=== PATIENT | female | born 1985 | race Caucasian/White ===

== ENCOUNTER 2016-05-21 17:00 | Emergency (ER) | payer MEDICAID ==
--- NOTE | 2016-05-21 17:19 | Emergency Department Record ---
History of Present Illness - General Chief complaint: Abscess Stated complaint: painful spot on face Time Seen by Provider: 05/21/16 17:18 Source: Patient Mode of Arrival: Ambulatory Limitations: No limitations - History of Present Illness Initial comments: The patient has had a painful pimple to her R mandible area for 3 days. It was worse yesterday and today the swelling and redness have gone down but she now has a tender lymph node under her jaw on the L. She denies any ULISES, cough, fever , ST or any trouble swallowing. MD complaint: Abscess/boil, Rash Onset/Timin -: Days(s) Location: Face Severity: Moderate Severity scale (1-10): 3 Quality: Aching Consistency: Constant Improves with: None Worsens with: Palpation - Related Data Previous Rx's Medication Instructions Recorded Clindamycin HCl [Cleocin HCl] 300 mg PO QID #28 capsule 05/21/16 Allergies Allergy/AdvReac Type Severity Reaction Status Date / Time No Known Drug Allergies Allergy Verified 05/21/16 17:08 Travel Screening - Travel/Exposure Within Last 30 Days Have you traveled within the last 30 days?: No - Travel/Exposure Within Last Year Have you traveled outside the [place] in the last year?: No - Additonal Travel Details Have you been exposed to anyone with a communicable illness?: No - Travel Symptoms Symptom Screening: None Review of Systems Constitutional: Denies: Chills, Fever Past Medical History - SOCIAL HISTORY Smoking Status: Current every day smoker Alcohol Use: None Drug Use: None - RESPIRATORY Hx Respiratory Disorders: No - CARDIOVASCULAR Hx Cardio Disorders: Yes Comment:: murmur - NEURO Hx Neuro Disorders: No - GI Hx GI Disorders: No - Hx Genitourinary Disorders: No - ENDOCRINE Hx Endocrine Disorders: No - MUSCULOSKELETAL Hx Musculoskeletal Disorders: No - PSYCH Hx Psych Problems: No - HEMATOLOGY/ONCOLOGY Hx Hematology/Oncology Disorders: No Family Medical History Any Significant Family History?: Yes Physical Exam - General General Appearance: Alert, Oriented x3, Cooperative, No acute distress - Head Head exam: Atraumatic, Normocephalic, Normal inspection - Eye Eye exam: Normal appearance, PERRL - ENT ENT exam: Other (There is a 7x7 mm tender nodule to the R anterior mandible area. It is NOT fluctuant but very tender. There is no surrounding erythema.). negative: Normal exam Throat exam: Normal inspection. negative: Tonsillar erythema, Tonsillar exudate - Neck Neck exam: Normal inspection, Full ROM, Lymphadenopathy (there is a tender L anterior submandibular node.). negative: Tenderness - Respiratory Respiratory exam: Normal lung sounds bilaterally. negative: Respiratory distress Course Vital Signs 05/21/16 17:03 Temperature 98.3 F Pulse Rate 85 Respiratory 12 Rate Blood Pressure 121/69 Pulse Ox 98 - Reevaluation(s) Reevaluation #1: I did discuss the plan to treat the patient with clindamycin and warm compresses. She is to see her PCP in 2 days if not better and return to the ER if worse. 05/21/16 17:26 Disposition Disposition: Discharge Clinical Impression: Cutaneous abscess Qualifiers: Site of cutaneous abscess: face Qualified Code(s): L02.01 - Cutaneous abscess of face Disposition: Home, Self-Care Condition: (1) Good Instructions: Abscess (ED) Additional Instructions: Please use warm compresses on the area when possible. Please take the Clindamycin and F/U with your PCP in 2-3 days if not better. Return to the ER for any increased pain, swelling, or redness. Prescriptions: Clindamycin HCl [Cleocin HCl] 300 mg PO QID #28 capsule Forms: Patient Portal Access Time of Disposition: 17:28
[2016-05-21] MEDS ORDERED: CLINDAMYCIN 150 MG CAP PO ONE (17:23)
== END 2016-05-21 17:33 | disposition home or self-care (01) ==
LOC: ER 17:00
DX: L02.01 Cutaneous abscess of face (principal)
CPT/HCPCS: 99282

== ENCOUNTER 2016-09-12 08:48 | Emergency (ER) | payer MEDICAID ==
[2016-09-12] MEDS ORDERED: KETOROLAC 30 MG/ML VIAL IVP ONE (09:01)
[2016-09-12] MEDS ORDERED: 0.9 % SODIUM CHLORIDE 1,000 ML BAG IV ONE (09:01)
[2016-09-12] MEDS ORDERED: ONDANSETRON HCL IV 4 MG/2 ML VIAL IV ONE (09:01)
--- NOTE | 2016-09-12 09:07 | Emergency Department Record ---
History of Present Illness - General Chief complaint: Flank Pain Stated complaint: BACK & GROIN PAIN Time Seen by Provider: 09/12/16 09:00 Source: Patient Mode of Arrival: Ambulatory Limitations: No limitations - History of Present Illness Initial comments: 30 yo female presents with a sharp pain that started around 6am. The pain initially was in the RLQ then noted in the right flank. She reports she has had similar pain in the pain with a renal stones that she past during a . She states her urine looks tinged with blood. No abnormal cycles. No history or abdominal surgeries. No fevers, chills, vomiting or diarrhea. MD Complaint: Pelvic pain, Other (Right flank pain) Onset/Timin -: Hour(s) Radiation: R flank Severity: Moderate Severity scale (1-10): 7 Quality: Cramping, Sharp Consistency: Constant Improves with: None Worsens with: None Associated Symptoms: Hematuria - Related Data Previous Rx's Medication Instructions Recorded Clindamycin HCl [Cleocin HCl] 300 mg PO QID #28 capsule 05/21/16 Hydrocodone/Acetaminophen [[place] 1 each PO Q6H PRN #12 tablet 09/12/16 5-325 Tablet] Ondansetron [Zofran Odt] 4 mg PO Q8H #12 tab.rapdis 09/12/16 Allergies Allergy/AdvReac Type Severity Reaction Status Date / Time No Known Drug Allergies Allergy Verified 05/21/16 17:08 Travel Screening - Travel/Exposure Within Last 30 Days Have you traveled within the last 30 days?: No - Travel/Exposure Within Last Year Have you traveled outside the [place] in the last year?: No - Additonal Travel Details Have you been exposed to anyone with a communicable illness?: No Review of Systems Constitutional: Denies: Chills, Fever, Malaise, Weakness Eyes: Denies: Eye discharge ENT: Denies: Congestion, Throat pain Respiratory: Denies: Cough, Dyspnea, Wheezes Cardiovascular: Denies: Chest pain, Palpitations, Syncope Endocrine: Denies: Fatigue, Polydipsia, Polyuria Gastrointestinal: Reports: Abdominal pain, Nausea. Denies: Constipation, Diarrhea, Hematemesis, Vomiting Genitourinary: Reports: Hematuria. Denies: Dysuria, Frequency, Urgency Musculoskeletal: Reports: As per HPI, Back pain. Denies: Arthralgia Skin: Denies: Bruising, Change in color, Rash Neurological: Denies: Numbness, Weakness Psychiatric: Denies: Anxiety Hematological/Lymphatic: Denies: Blood Clots, Easy bleeding, Easy bruising, Swollen glands Past Medical History - SOCIAL HISTORY Smoking Status: Current every day smoker Alcohol Use: None Drug Use: None - RESPIRATORY Hx Respiratory Disorders: No - CARDIOVASCULAR Hx Cardio Disorders: Yes Comment:: murmur - NEURO Hx Neuro Disorders: No - GI Hx GI Disorders: No - Hx Genitourinary Disorders: Yes Hx Kidney Stones: Yes - ENDOCRINE Hx Endocrine Disorders: No - MUSCULOSKELETAL Hx Musculoskeletal Disorders: No - PSYCH Hx Psych Problems: No - HEMATOLOGY/ONCOLOGY Hx Hematology/Oncology Disorders: No Family Medical History Any Significant Family History?: No Physical Exam - General General Appearance: Alert, Oriented x3, Cooperative, No acute distress Limitations: No limitations - Head Head exam: Normal inspection - Eye Eye exam: Normal appearance. negative: Conjunctival injection, Periorbital swelling - ENT ENT exam: Normal exam Ear exam: Normal external inspection Nasal Exam: Normal inspection Mouth exam: Normal external inspection - Neck Neck exam: Normal inspection, Full ROM. negative: Tenderness - Respiratory Respiratory exam: Normal lung sounds bilaterally. negative: Respiratory distress - Cardiovascular Cardiovascular Exam: Regular rate, Normal rhythm, Normal heart sounds - GI/Abdominal GI/Abdominal exam: Soft. negative: Distended, Tenderness - Rectal Rectal exam: Deferred - exam: Deferred - Extremities Extremities exam: Normal inspection, Full ROM, Normal capillary refill. negative: Tenderness - Back Back exam: Reports: Normal inspection, CVA tenderness (R), Full ROM, Tenderness. Denies: CVA tenderness (L), Muscle spasm, Paraspinal tenderness, Rash noted, Vertebral tenderness - Neurological Neurological exam: Alert, Normal gait, Oriented X3 - Psychiatric Psychiatric exam: Normal affect, Normal mood - Skin Skin exam: Dry, Intact, Normal color, Warm Course Vital Signs 09/12/16 09:01 Temperature 97.7 F Pulse Rate [ 74 Pulse Ox Probe] Respiratory 20 Rate Blood Pressure 127/72 [Left Arm] Pulse Ox 97 - Reevaluation(s) Reevaluation #1: EMR reviewed. No prior abdominal imaging. Vitals reviewed. No fever. 09/12/16 09:07 Reevaluation #2: The labs were reviewed No acute changes of the CBC, CMP The UA is positive for blood The HCG is negative for 09/12/16 09:36 Reevaluation #3: CT reviewed. Distall 2.5mm stone. Questionable small adrenal nodule. The patient was informed regarding the results. The patient's pain is controlled at this time. 09/12/16 10:13 Appointment made for 2:45pm with Urology in the [facility] specialty clinic today 09/12/16 10:36 Medical Decision Making - Lab Data Result diagrams: 09/12/16 09:07 09/12/16 09:07 Disposition Disposition: Discharge Clinical Impression: Renal calculus or stone Disposition: Home, Self-Care Condition: (1) Good Instructions: Kidney Stones (ED) Additional Instructions: Follow up as schedule in the Urology Specialty Clinic at 2:45pm Return if you have any fever, uncontrolled pain or any new concerns Prescriptions: Hydrocodone/Acetaminophen [[place] 5-325 Tablet] 1 each PO Q6H PRN #12 tablet PRN Reason: Abdominal Pain Ondansetron [Zofran Odt] 4 mg PO Q8H #12 tab.rapdis Referrals: NABIL BROWN M.D. [MEDICAL DOCTOR] - [facility] Specialty Clinics [Provider Group] Forms: Patient Portal Access Time of Disposition: 10:37
[2016-09-12 09:13] LABS: URINE APPEARANCE CLEAR; URINE BILIRUBIN NEGATIVE (NEGATIVE); URINE BLOOD LARGE (NEGATIVE); URINE COLOR YELLOW; URINE GLUCOSE (UA) NEGATIVE (NEGATIVE); URINE KETONE NEGATIVE (NEGATIVE); URINE LEUKOCYTE ESTERASE NEGATIVE (NEGATIVE); URINE NITRITE NEGATIVE (NEGATIVE); URINE PROTEIN TRACE (NEGATIVE); URINE UROBILINOGEN 0.2 E.U./dL (0.20 - 1.00)
[2016-09-12] MEDS ORDERED: MORPHINE SULFATE 5 MG/ML PFS IVP ONE (09:16)
[2016-09-12 09:19] LABS: BASO % 0.4 % (0-6); EOS % 2.7 % (0-6); GRAN % 47.8 % (47-80); HEMOGLOBIN 14.7 gm/dl (11.6-16.0); LYMPH % 38.6 % (16-45); MEAN CELL VOLUME 95.3 fl (81-97); MEAN CORPUSCULAR HEMOGLOBIN 31.1 pg (27-33); MEAN CORPUSCULAR HGB CONC 32.7 g/dl (32-36); MONO % 10.5 % (0-9); PLATELET COUNT 217 K/uL (130-400); RED BLOOD COUNT 4.72 M/uL (3.80-5.40); RED CELL DISTRIBUTION WIDTH 12.5 % (11.5-14.5); WHITE BLOOD COUNT W/O DIFF 4.8 K/uL (4.2-12.2)
[2016-09-12 09:25] LABS: HCG,QUALITATIVE URINE NEGATIVE (NEGATIVE); URINE BACTERIA NONE SEEN; URINE EPITHELIAL CELLS 0 - 2 (FEW); URINE RBC >50 (NONE SEEN); URINE WBC NONE SEEN (0-2/hpf)
[2016-09-12 09:25] LABS: ALB/GLOB RATIO 1.7 (1.1-1.8); ALBUMIN 4.7 gm/dL (3.5-5.0); ALKALINE PHOSPHATASE 54 U/L (38-126); ALT/SGPT 21 U/L (9-52); AST/SGOT 16 U/L (14-36); BILIRUBIN,TOTAL 0.56 mg/dL (0.2-1.3); BLOOD UREA NITROGEN 11 mg/dL (7-17); CREATININE 0.7 mg/dL (0.52-1.04); EST GLOMERULAR FILTRATION RATE > 60 ml/min; GLUCOSE,RANDOM 105 mg/dL (70-110); LIPASE 51 U/L (23-300); TOTAL PROTEIN 7.4 gm/dL (6.3-8.2)
[2016-09-12] MEDS ORDERED: TAMSULOSIN HCL 0.4 MG CAP.ER.24H PO ONE (10:13)
--- NOTE | 2016-09-13 09:50 | Medical Records Consult ---
DATE OF CONSULTATION: 09/12/2016 REASON FOR CONSULTATION: Ureteral calculus. CASE SUMMARY: 30-year-old female who presented to [facility] Emergency Room earlier this morning. She had acute onset of right-sided flank pain at about 6:00 a.m. and upon presentation a CT scan was done without contrast and I reviewed the images personally today. This revealed a roughly 3 mm distal right ureteral calculus just proximal o the right ureterovesical junction. There was proximal hydroureter and hydronephrosis. I did not see any other remaining calculi in the urinary tract. She was discharged from the emergency room and sent for consultation in the clinic today. This is the 2nd stone that she has been able to pass. She has never required urological surgery for stone extraction. PAST MEDICAL HISTORY: Significant for bronchitis, renal calculi. PAST SURGICAL HISTORY: Skin abscess, fracture and contusion of the right hand. MEDICATIONS: Home medications have been reviewed. She was discharged from the emergency room with Zofran and [place]. She was given 1 dose of Flomax in the ero1 before she was discharged. ALLERGIES: There are no known drug allergies. SOCIAL HISTORY: Has been reviewed. REVIEW OF SYSTEMS: Is 10+ per the chart. PHYSICAL EXAMINATION: GENERAL: The patient is awake, alert, oriented, in no apparent distress. VITAL SIGNS: She is 5 feet 3 inches in height, roughly 125 pounds. Temperature is 98.1. Heart rate is 60. Blood pressure is 102/53. Calculated BMI is 22.1. NECK: Shows no masses or tenderness. CHEST: Shows normal expansion without any wheezing. ABDOMEN: Soft, nontender and nondistended. There is some mild right costovertebral angle tenderness to percussion. EXTREMITIES: There is no lower extremity edema. NEUROLOGIC: There is no focal deficit. IMAGING: CT scan again was reviewed personally as noted above. LABORATORY: Studies were also reviewed. White count is 4.8, hemoglobin 14.7, platelets 217,000. Urinalysis showed greater than 50 red cells, 0 white cells per high power field. Urine HCG was negative. BUN was 11, creatinine 0.7. IMPRESSION: Obstructing distal right ureteral calculus. PLAN: The patient is currently fairly comfortable. I recommended that she continue 7 days of Flomax, increase her fluid intake, take the pain medication as needed, and the Zofran if nausea returns. She has a roughly 90% chance of passing the stone on her own as long as the pain is manageable and she is not having severe nausea. We discussed following up in 1 week back in the clinic if she has still not passed the stone and at that point we would need to schedule her for ureteroscopic stone extraction. She is comfortable with the plan as outlined today. I gave her a prescription for Flomax to take 1 daily for 14 days and she will be making a follow-up appointment next week. Boy Hammond M.D. [facility]
== END 2016-09-12 10:48 | disposition home or self-care (01) ==
LOC: ER 08:48
DX: N20.0 Calculus of kidney (principal); Z87.442 Personal history of urinary calculi
CPT/HCPCS: 99284 ×2; 96374; 96375; 83690; 85025; 80053; 81001; 81025; 74176; J1885; J2405; J2270; J7030

== ENCOUNTER 2016-09-17 15:26 | Emergency (ER) | payer MEDICAID ==
[2016-09-17 15:51] LABS: URINE APPEARANCE CLEAR; URINE BILIRUBIN NEGATIVE (NEGATIVE); URINE BLOOD SMALL (NEGATIVE); URINE COLOR YELLOW; URINE GLUCOSE (UA) NEGATIVE (NEGATIVE); URINE KETONE NEGATIVE (NEGATIVE); URINE LEUKOCYTE ESTERASE NEGATIVE (NEGATIVE); URINE NITRITE NEGATIVE (NEGATIVE); URINE PROTEIN NEGATIVE (NEGATIVE); URINE UROBILINOGEN 0.2 E.U./dL (0.20 - 1.00)
[2016-09-17 15:57] LABS: URINE AMORPHOUS SEDIMENT FEW; URINE WBC NONE SEEN (0-2/hpf)
--- NOTE | 2016-09-17 16:19 | Emergency Department Record ---
History of Present Illness - General Chief complaint: Female Urogenital Problem Stated complaint: UTI Time Seen by Provider: 09/17/16 15:45 Source: Patient Mode of Arrival: Ambulatory Limitations: No limitations - History of Present Illness Initial comments: The patient is here due to suprapubic pain and dysuria. She was diagnosed with a kidney stone last week and did pass it 5 days ago. She then continued to have symptoms of dysuria so she was seen in the and told she had blood in the urine and was started on Cipro for a presumed UTI. She has taken that for 4 days but now feels like her UTI is worsening so she decided to come to the ER. She denies any flank pain, fever, chills, vomiting, or diarrhea. MD Complaint: Dysuria Onset/Timin -: Days(s) Location: Suprapubic Radiation: Other Severity: Moderate Severity scale (1-10): 7 Quality: Aching Consistency: Constant Improves with: None Worsens with: Urination LMP Date: 09/04/16 Gestational Age (wks) based on LMP: 1 Associated Symptoms: Dysuria, Headaches - Related Data Sexually active: No Allergies Allergy/AdvReac Type Severity Reaction Status Date / Time No Known Drug Allergies Allergy Verified 09/17/16 15:42 Travel Screening - Travel/Exposure Within Last 30 Days Have you traveled within the last 30 days?: No Review of Systems Constitutional: Denies: Chills, Fever Eyes: Denies: Eye discharge ENT: Denies: Congestion Respiratory: Denies: Cough, Dyspnea Past Medical History - SOCIAL HISTORY Smoking Status: Current every day smoker Alcohol Use: None Drug Use: None - RESPIRATORY Hx Respiratory Disorders: No - CARDIOVASCULAR Hx Cardio Disorders: Yes Comment:: murmur - NEURO Hx Neuro Disorders: No - GI Hx GI Disorders: No - Hx Genitourinary Disorders: Yes Hx Kidney Stones: Yes Hx UTI: Yes - ENDOCRINE Hx Endocrine Disorders: No - MUSCULOSKELETAL Hx Musculoskeletal Disorders: No - PSYCH Hx Psych Problems: No - HEMATOLOGY/ONCOLOGY Hx Hematology/Oncology Disorders: No Family Medical History Any Significant Family History?: No Physical Exam - General General Appearance: Alert, Oriented x3, Cooperative, No acute distress - Head Head exam: Atraumatic, Normocephalic, Normal inspection - Eye Eye exam: Normal appearance, PERRL - Neck Neck exam: Normal inspection, Full ROM. negative: Tenderness - Respiratory Respiratory exam: Normal lung sounds bilaterally. negative: Respiratory distress - Cardiovascular Cardiovascular Exam: Regular rate, Normal rhythm, Normal heart sounds - GI/Abdominal GI/Abdominal exam: Soft, Normal bowel sounds. negative: Distended, Rigid, Tenderness - Back Back exam: Denies: CVA tenderness (R), CVA tenderness (L) - Neurological Neurological exam: Alert. negative: Motor sensory deficit Course Vital Signs 09/17/16 15:38 Temperature 98.3 F Pulse Rate 77 Respiratory 20 Rate Blood Pressure 130/79 Pulse Ox 100 - Reevaluation(s) Reevaluation #1: The patient is resting comfortably with no signs of any distress or pain. I explained to the patient that her lab tests and urine are much improved and there is no sign of any infection. There is a very small amount of RBC's but it appears to be much improved from last week. I explained to the patient that due to the tests being so normal I doubt any new kidney stone. The patient is to return to the ER at 10am tomorrow for an US to evaluated for a stone. 09/17/16 17:22 Medical Decision Making - Lab Data Result diagrams: 09/17/16 16:24 09/17/16 16:24 Lab Results 09/17/16 Range/Units 15:45 Urine Color Yellow Urine Appearance Clear Urine pH 8.0 (5.0-8.0) Ur Specific [place] 1.010 (1.002-1.030) Urine Protein Negative (NEGATIVE) Urine Glucose (UA) Negative (NEGATIVE) Urine Ketones Negative (NEGATIVE) Urine Blood Small H (NEGATIVE) Urine Nitrite Negative (NEGATIVE) Urine Bilirubin Negative (NEGATIVE) Urine Urobilinogen 0.2 (0.20 - 1.00) E.U./dL Ur Leukocyte Esterase Negative (NEGATIVE) Urine RBC 7 - 10 (NONE SEEN) Urine WBC None seen (0-2/hpf) Ur Epithelial Cells 7 - 10 (FEW) Amorphous Sediment Few Disposition Disposition: Discharge Clinical Impression: Pelvic pain Disposition: Home, Self-Care Condition: (1) Good Instructions: Pelvic Pain in Women (ED) Additional Instructions: Please continue your present medicines. Please return to the ER at 10 am tomorrow for recheck and an US. Return to the ER sooner for any increased pain, fever, or vomiting. Forms: Patient Portal Access Time of Disposition: 17:18
[2016-09-17 16:32] LABS: BASO % 0.4 % (0-6); EOS % 2.1 % (0-6); GRAN % 52.6 % (47-80); HEMATOCRIT 40.3 % (35.0-47.0); HEMOGLOBIN 13.3 gm/dl (11.6-16.0); LYMPH % 36.3 % (16-45); MEAN CORPUSCULAR HEMOGLOBIN 31.4 pg (27-33); MEAN PLATELET VOLUME 10.9 fl (7.4-10.4); MONO % 8.6 % (0-9); PLATELET COUNT 191 K/uL (130-400); RED BLOOD COUNT 4.24 M/uL (3.80-5.40); RED CELL DISTRIBUTION WIDTH 12.6 % (11.5-14.5); WHITE BLOOD COUNT W/O DIFF 5.4 K/uL (4.2-12.2)
[2016-09-17 16:44] LABS: ANION GAP 5.5 (7-16); BLOOD UREA NITROGEN 11 mg/dL (7-17); CARBON DIOXIDE 25.5 mmol/L (22-30); CREATININE 0.6 mg/dL (0.52-1.04); EST GLOMERULAR FILTRATION RATE > 60 ml/min; GLUCOSE,RANDOM 106 mg/dL (70-110)
== END 2016-09-17 17:27 | disposition home or self-care (01) ==
LOC: ER 15:26
DX: R10.2 Pelvic and perineal pain (principal); R30.0 Dysuria; R51 Headache; Z87.442 Personal history of urinary calculi
CPT/HCPCS: 80048; 81001; 81025; 85025; 99283

== ENCOUNTER 2016-09-18 07:13 | Emergency (ER) | payer MEDICAID ==
[2016-09-18] MEDS ORDERED: KETOROLAC 30 MG/ML VIAL IVP ONE (07:30)
[2016-09-18] MEDS ORDERED: ONDANSETRON HCL IV 4 MG/2 ML VIAL IV ONE (07:30)
[2016-09-18] MEDS ORDERED: 0.9 % SODIUM CHLORIDE 1,000 ML BAG IV ONE (07:30)
[2016-09-18 07:39] LABS: URINE APPEARANCE CLEAR; URINE BILIRUBIN SMALL (NEGATIVE); URINE BLOOD LARGE (NEGATIVE); URINE GLUCOSE (UA) NEGATIVE (NEGATIVE); URINE KETONE TRACE (NEGATIVE); URINE PROTEIN TRACE (NEGATIVE)
--- NOTE | 2016-09-18 07:40 | Emergency Department Record ---
History of Present Illness - General Chief complaint: Flank Pain Stated complaint: POSSIBLE KIDNEY STONE Time Seen by Provider: 09/18/16 07:27 Source: Patient Mode of Arrival: Ambulatory Limitations: No limitations - History of Present Illness Initial comments: The patient is here due to severe R flank pain which started about 2 hours ago. She has a hx of kidney stones and did have one last week and this pain is similar to that episode. She felt she passed it and she does have an appointment with her Urologist tomorrow. The patient was in the ER yesterday for mild pain and was set up for an US today. MD Complaint: Other Onset/Timin -: Hour(s) Radiation: R flank Severity: Severe Severity scale (1-10): 10 Quality: Sharp Consistency: Constant Improves with: None Worsens with: None Patient : No LMP Date: 09/04/16 Gestational Age (wks) based on LMP: 2 - Related Data Previous Rx's Medication Instructions Recorded Acetaminophen with Codeine 1 - 2 tab PO Q6H #20 tab 09/18/16 [Tylenol #3] Allergies Allergy/AdvReac Type Severity Reaction Status Date / Time No Known Drug Allergies Allergy Verified 09/17/16 15:42 Travel Screening - Travel/Exposure Within Last 30 Days Have you traveled within the last 30 days?: No Review of Systems Constitutional: Denies: Chills, Fever Eyes: Denies: Eye discharge ENT: Denies: Congestion Respiratory: Denies: Cough, Dyspnea Past Medical History - SOCIAL HISTORY Smoking Status: Current every day smoker Alcohol Use: None Drug Use: None - RESPIRATORY Hx Respiratory Disorders: No - CARDIOVASCULAR Hx Cardio Disorders: Yes Comment:: murmur - NEURO Hx Neuro Disorders: No - GI Hx GI Disorders: No - Hx Genitourinary Disorders: Yes Hx Kidney Stones: Yes Hx UTI: Yes - ENDOCRINE Hx Endocrine Disorders: No - MUSCULOSKELETAL Hx Musculoskeletal Disorders: No - PSYCH Hx Psych Problems: No - HEMATOLOGY/ONCOLOGY Hx Hematology/Oncology Disorders: No Family Medical History Any Significant Family History?: No Physical Exam - General General Appearance: Alert, Oriented x3, Cooperative, Mild distress (due to flank pain.) - Head Head exam: Normal inspection - Eye Eye exam: Normal appearance, PERRL - Neck Neck exam: Normal inspection, Full ROM. negative: Tenderness - Respiratory Respiratory exam: Normal lung sounds bilaterally. negative: Respiratory distress - Cardiovascular Cardiovascular Exam: Regular rate, Normal rhythm, Normal heart sounds - GI/Abdominal GI/Abdominal exam: Tenderness (There is diffuse R sided tenderness.). negative : Soft, Guarding - Extremities Extremities exam: Normal inspection, Full ROM, Normal capillary refill. negative: Tenderness - Back Back exam: Reports: CVA tenderness (R) Course Vital Signs 09/18/16 07:16 Temperature 97.2 F L Pulse Rate 54 L Respiratory 24 Rate Blood Pressure 130/74 Pulse Ox 100 - Reevaluation(s) Reevaluation #1: The patient is doing a lot better at this time. Her pain has pretty much resolved and she is resting comfortably. I did discuss the CT results with her and she does have an appointment with Dr. Hammond tomorrow. Her UA did have some WBC's in it but it clearly was contaminated and I strongly doubt an infected stone due to the fact she has no fever and her WBC was low yesterday. Additionally she has been on Cipro for 5 days. 09/18/16 08:29 Reevaluation #2: The patient is still doing very well and is without any pain or discomfort. She feels ready for discharge. I did recommend taking her home Flomax once a day and to keep the appointment with Dr. Hammond for tomorrow. 09/18/16 08:41 Medical Decision Making - Data Complexity MDM Data: Labs Ordered and/or Reviewed, X-Ray Ordered and/or Reviewed - Radiology Data Radiology results: Report reviewed (CT: 3.5 mm stone R UVJ with mod hydro.) Disposition Disposition: Discharge Clinical Impression: Renal calculus or stone Disposition: Home, Self-Care Condition: (1) Good Instructions: Flank Pain (ED) Additional Instructions: Please take the Flomax daily and use Motrin and Tylenol # 3 for pain. Please drink plenty of fluids. Definitely keep your appointment with Dr. Hammond for tomorrow. Return to the ER for any increased pain, vomiting, or fever. Prescriptions: Acetaminophen with Codeine [Tylenol #3] 1 - 2 tab PO Q6H #20 tab Forms: Patient Portal Access Time of Disposition: 08:44
[2016-09-18] MEDS ORDERED: MORPHINE SULFATE 5 MG/ML PFS IVP ONE ×2 (07:41→08:01)
[2016-09-18 08:03] LABS: URINE COLOR DARK YELLOW; URINE LEUKOCYTE ESTERASE NEGATIVE (NEGATIVE); URINE NITRITE NEGATIVE (NEGATIVE)
[2016-09-18 08:05] LABS: URINE BACTERIA 1+; URINE CALCIUM OXALATE CRYSTALS 2+ /hpf
== END 2016-09-18 08:55 | disposition home or self-care (01) ==
LOC: ER 07:13
DX: N13.2 Hydronephrosis with renal and ureteral calculous obstruction (principal); Z87.442 Personal history of urinary calculi
CPT/HCPCS: 74176; 81001; J1885; J2405; J7030

== ENCOUNTER 2016-09-18 09:32 | Observation (INO) | payer MEDICAID ==
[2016-09-18] MEDS ORDERED: HYDROMORPHONE HCL 1 MG/ML CPJ IVP ONE ×2 (09:46→10:21)
[2016-09-18] MEDS ORDERED: 0.9 % SODIUM CHLORIDE 1,000 ML BAG IV ONE (09:46)
[2016-09-18] MEDS ORDERED: ONDANSETRON HCL IV 4 MG/2 ML VIAL IV ONE (09:46)
[2016-09-18 10:01] LABS: HEMOGLOBIN 14.2 gm/dl (11.6-16.0); MEAN CELL VOLUME 95.1 fl (81-97); MEAN CORPUSCULAR HEMOGLOBIN 31.4 pg (27-33); MEAN PLATELET VOLUME 11.5 fl (7.4-10.4); PLATELET COUNT 200 K/uL (130-400); RED BLOOD COUNT 4.52 M/uL (3.80-5.40); RED CELL DISTRIBUTION WIDTH 12.6 % (11.5-14.5)
--- NOTE | 2016-09-18 10:07 | Emergency Department Record ---
History of Present Illness - General Chief complaint: Flank Pain Stated complaint: FLANK PAIN Time Seen by Provider: 09/18/16 09:39 Source: Patient Mode of Arrival: Ambulatory Limitations: No limitations - History of Present Illness Initial comments: The patient has a known R distal ureter stone and now is having increased pain. She was in the ER 2 hours ago for the same thing and was discharged due to the pain being controlled. Now the pain is worse again and very severe. She does have nausea but no vomiting. MD Complaint: Dysuria Onset/Timin -: Hour(s) Radiation: R flank Severity: Severe Severity scale (1-10): 8 Quality: Sharp Consistency: Constant Improves with: None Worsens with: None Patient : No Associated Symptoms: Nausea/vomiting - Related Data Home Medications Medication Instructions Recorded Confirmed Last Taken Tamsulosin HCl [Flomax] 0.4 mg PO DAILY 09/18/16 09/18/16 Unknown Previous Rx's Medication Instructions Recorded Acetaminophen with Codeine 1 - 2 tab PO Q6H #20 tab 09/18/16 [Tylenol #3] Allergies Allergy/AdvReac Type Severity Reaction Status Date / Time No Known Drug Allergies Allergy Verified 09/17/16 15:42 Travel Screening - Travel/Exposure Within Last 30 Days Have you traveled within the last 30 days?: No Review of Systems Constitutional: Denies: Chills, Fever Past Medical History - SOCIAL HISTORY Smoking Status: Current every day smoker Alcohol Use: None Drug Use: None - RESPIRATORY Hx Respiratory Disorders: No - CARDIOVASCULAR Hx Cardio Disorders: Yes Comment:: murmur - NEURO Hx Neuro Disorders: No - GI Hx GI Disorders: No - Hx Genitourinary Disorders: Yes Hx Kidney Stones: Yes Hx UTI: Yes - ENDOCRINE Hx Endocrine Disorders: No - MUSCULOSKELETAL Hx Musculoskeletal Disorders: No - PSYCH Hx Psych Problems: No - HEMATOLOGY/ONCOLOGY Hx Hematology/Oncology Disorders: No Family Medical History Any Significant Family History?: No Physical Exam - General General Appearance: Alert, Oriented x3, Cooperative, Mild distress - Head Head exam: Atraumatic, Normocephalic, Normal inspection - Eye Eye exam: Normal appearance, PERRL - Neck Neck exam: Normal inspection, Full ROM. negative: Tenderness - Respiratory Respiratory exam: Normal lung sounds bilaterally. negative: Respiratory distress - Cardiovascular Cardiovascular Exam: Regular rate, Normal rhythm, Normal heart sounds - GI/Abdominal GI/Abdominal exam: Tenderness (There is RLQ tenderness.). negative: Soft, Guarding, Rebound - Extremities Extremities exam: Normal inspection, Full ROM, Normal capillary refill. negative: Tenderness Course Vital Signs 09/18/16 09:37 Temperature 97.5 F L Pulse Rate 78 Respiratory 20 Rate Blood Pressure 118/76 Pulse Ox 100 - Reevaluation(s) Reevaluation #1: I did discuss the case with Dr. Hammond and he will consult on the case and possibly place a stent in the R ureter. 09/18/16 10:07 Reevaluation #2: The patient is doing better but is still having mild pain. I did discuss the case again with Dr. Hammond and he would like the patient admitted to the hospital overnight and he will place a stent in the ureter tomorrow. I then did discuss the case with Dr. Garay and she will admit the patient. 09/18/16 10:20 Medical Decision Making - Data Complexity MDM Data: Labs Ordered and/or Reviewed - Lab Data Result diagrams: 09/18/16 09:50 09/18/16 09:50 Lab Results 09/18/16 Range/Units 09:50 WBC 11.0 (4.2-12.2) K/uL RBC 4.52 (3.80-5.40) M/uL Hgb 14.2 (11.6-16.0) gm/dl Hct 43.0 (35.0-47.0) % MCV 95.1 (81-97) fl MCH 31.4 (27-33) pg MCHC 33.0 (32-36) g/dl RDW 12.6 (11.5-14.5) % Plt Count 200 (130-400) K/uL MPV 11.5 H (7.4-10.4) fl Eosinophils % Not Reportable Basophils % Not Reportable Disposition Disposition: Admit Clinical Impression: Renal calculus or stone Disposition: Still a Patient at [facility] Decision to Admit: Admit from ER Decision to Admit Date: 09/18/16 Decision to Admit Time: Accepting Physician: Tanisha Time Discussed w/Accepting Physician: 10:22 Condition: (2) Stable Forms: Patient Portal Access Time of Disposition: :
[2016-09-18 10:14] LABS: ANION GAP 9.9 (7-16); BLOOD UREA NITROGEN 12 mg/dL (7-17); CARBON DIOXIDE 22.1 mmol/L (22-30); CREATININE 0.7 mg/dL (0.52-1.04); EST GLOMERULAR FILTRATION RATE > 60 ml/min; GLUCOSE,RANDOM 114 mg/dL (70-110)
[2016-09-18] MEDS ORDERED: HYDROMORPHONE HCL 1 MG/ML CPJ IVP PRN (11:24)
[2016-09-18] MEDS ORDERED: 0.9 % SODIUM CHLORIDE 1000ML 1,000 ML IV PRN (11:24)
[2016-09-18] MEDS ORDERED: METOCLOPRAMIDE HCL 10 MG/2 ML VIAL IVP PRN ×2 (12:29→12:42)
[2016-09-18] MEDS: METOCLOPRAMIDE HCL 10 MG/2 ML VIAL IVP PRN (13:10)
[2016-09-18] MEDS ORDERED: PROPOFOL 10 MG/ML VIAL IV ONE (14:00)
[2016-09-18] MEDS ORDERED: *PACU ONLY* KETAMINE HCL 10 MG/ML (20ML) VIAL IV ONE (14:00)
[2016-09-18] MEDS ORDERED: DEXAMETHASONE 4 MG/ML 1ML VIAL IVP ONE (14:00)
[2016-09-18] MEDS ORDERED: ONDANSETRON HCL IV 4 MG/2 ML VIAL IVP ONE (14:00)
[2016-09-18] MEDS ORDERED: KETOROLAC 30 MG/ML VIAL IVP ONE (14:00)
[2016-09-18] MEDS: ONDANSETRON HCL IV 4 MG/2 ML VIAL IVP PRN (15:15)
[2016-09-18] MEDS: MORPHINE SULFATE 5 MG/ML PFS IVP PRN ×2 (17:37→23:22)
--- NOTE | 2016-09-18 17:37 | History & Physical ---
History of Present Illness - Date of Service Date of Service for History & Physical: 09/18/16 - History of Present Illness Admitting Diagnosis: 1. R Ureter Stone with Obstruction. History of Present Illness: 30 yo F presented to ER with right sided pain. The patient has a known R distal ureter stone and now is having increased pain. She was in the ER 2 hours ago prior to the current ER visit that lead to the admission, and also an ER visit a week prior to that for the same thing and was discharged due to the pain being controlled. Now the pain is worse again and very severe. She does have nausea but no vomiting. Denies any fevers or chills. Past Medical History: Kidney stone 3 years prior, smoker x 1ppd since age 19, PCP:[facility] Family Practice Travel Screening - Travel/Exposure Within Last 30 Days Have you traveled within the last 30 days?: No - Travel/Exposure Within Last Year Have you traveled outside the [place] in the last year?: No - Additonal Travel Details Have you been exposed to anyone with a communicable illness?: No - Travel Symptoms Symptom Screening: None Review of Systems Reviewed: No additional complaints except as noted below Constitutional: Denies: Chills, Fever Eyes: Reports: As per HPI. Denies: Eye discharge, Eye pain, Photophobia, Vision change ENT: Reports: As per HPI. Denies: Congestion, Dental pain, Ear pain, Epistaxis , Hearing loss, Throat pain Respiratory: Reports: As per HPI. Denies: Cough, Dyspnea, Hemoptysis, Stridor, Wheezes Cardiovascular: Reports: As per HPI. Denies: Arrhythmia, Chest pain, Dyspnea on exertion, Edema, Murmurs, Orthopnea, Palpitations, Paroxysmal nocturnal dyspnea, Rheumatic Fever, Syncope Endocrine: Reports: As per HPI. Denies: Fatigue, Heat or cold intolerance, Polydipsia, Polyuria Gastrointestinal: Reports: As per HPI. Denies: Abdominal pain, Constipation, Diarrhea, Hematemesis, Hematochezia, Melena, Nausea, Vomiting Genitourinary: Reports: As per HPI. Denies: Abnormal menses, Discharge, Dyspareunia, Dysuria, Frequency, Hematuria, Incontinence, Retention, Urgency Musculoskeletal: Reports: As per HPI. Denies: Arthralgia, Back pain, Gout, Joint swelling, Myalgia, Neck pain Skin: Reports: As per HPI. Denies: Bruising, Change in color, Change in hair/ nails, Lesions, Pruritus, Rash Neurological: Reports: As per HPI. Denies: Abnormal gait, Confusion, Headache, Numbness, Paresthesias, Seizure, Tingling, Tremors, Vertigo, Weakness Psychiatric: Reports: As per HPI. Denies: Anxiety, Auditory hallucinations, Depression, Homicidal thoughts, Suicidal thoughts, Visual hallucinations Hematological/Lymphatic: Reports: As per HPI. Denies: Anemia, Blood Clots, Easy bleeding, Easy bruising, Swollen glands Past Medical History - SOCIAL HISTORY Smoking Status: Current every day smoker Alcohol Use: None - RESPIRATORY Hx Respiratory Disorders: No - CARDIOVASCULAR Hx Cardio Disorders: Yes Comment:: outgrew murmur per family Dr - NEURO Hx Neuro Disorders: No - GI Hx GI Disorders: Yes Hx Abdominal Pain: Yes (rt sided flank & abd) Hx Nausea/Vomiting: Yes - Hx Genitourinary Disorders: Yes Hx Kidney Stones: Yes (3 yrs ago last kidney stone) Hx UTI: Yes Comment:: ucg negative - ENDOCRINE Hx Endocrine Disorders: No - MUSCULOSKELETAL Hx Musculoskeletal Disorders: Yes - PSYCH Hx Psych Problems: No - HEMATOLOGY/ONCOLOGY Hx Hematology/Oncology Disorders: No Family Medical History Any Significant Family History?: No Hx Alcohol Use: Father Hx Cancer: Grandparents Hx Dementia: Grandparents Hx Diabetes: Mother Hx Heart Disease: Father Hx HTN: Father Hx Stroke: Grandparents H&P Meds/Allergies - Allergies Allergies: Allergies Allergy/AdvReac Type Severity Reaction Status Date / Time No Known Drug Allergies Allergy Verified 09/17/16 15:42 - Home Medications Home Medications Medication Instructions Recorded Confirmed Last Taken Tamsulosin HCl [Flomax] 0.4 mg PO DAILY 09/18/16 09/18/16 Unknown Previous Rx's Medication Instructions Recorded Acetaminophen with Codeine 1 - 2 tab PO Q6H #20 tab 09/18/16 [Tylenol #3] - Active Medications Active Medications: Current Medications Hydromorphone HCl (Dilaudid) 1 mg IVP Q2H PRN PRN Reason: Analgesia Sodium Chloride () 1,000 mls @ 100 mls/hr IV .Q10H PRN PRN Reason: LARGE VOLUME IV Acetaminophen (Ofirmev) 1,000 mg in 100 mls @ 400 mls/hr IV PREOP ONE Stop: 09/19/16 13:14 Cefazolin Sodium (Kefzol) 1 gm in 50 mls @ 100 mls/hr IVPB PREOP ONE Stop: 09/19/16 13:44 Metoclopramide HCl (Reglan) 10 mg IVP Q6H PRN PRN Reason: NAUSEA OR VOMITING Last Admin: 09/18/16 13:10 Dose: 10 mg Morphine Sulfate (Morphine Sulfate) 10 mg IVP Q2HR PRN PRN Reason: Pain - Severe (8-10) Stop: 09/25/16 12:02 Morphine Sulfate (Morphine Sulfate) 5 mg IVP Q2H PRN PRN Reason: Pain - General Stop: 09/25/16 12:54 Ondansetron HCl (Zofran) 4 mg IVP Q4H PRN PRN Reason: NAUSEA Last Admin: 09/18/16 15:15 Dose: 4 mg Physical Exam - Vital Signs Vital Signs: Vital Signs - Last 24 Hrs Temp Pulse Resp BP Pulse Ox 09/18/16 16:26 98.1 F 67 14 100/69 98 09/18/16 11:24 97.8 F 71 16 132/77 100 09/18/16 11:17 97.8 F 71 16 132/77 100 - General General Appearance: Alert, Oriented x3, Cooperative, Mild distress Limitations: No limitations - Head Head exam: Atraumatic, Normocephalic, Normal inspection - Eye Eye exam: Normal appearance, PERRL - Neck Neck exam: Normal inspection, Full ROM. negative: Tenderness - Respiratory Respiratory exam: Normal lung sounds bilaterally. negative: Respiratory distress - Cardiovascular Cardiovascular Exam: Regular rate, Normal rhythm, Normal heart sounds - GI/Abdominal GI/Abdominal exam: Tenderness (There is RLQ tenderness.). negative: Soft, Guarding, Rebound - Extremities Extremities exam: Normal inspection, Full ROM, Normal capillary refill. negative: Tenderness Results - Labs Result Diagrams: 09/18/16 09:50 09/18/16 09:50 VTE H&P Assessment - Risk for VTE Risk for VTE: Yes Risk Level: Very Low Risk Assessment Date: 09/18/16 Risk Assessment Time: 17:42 VTE Orders Placed or Will Be Placed: No VTE Reason for No Prophylaxis: Not Indicated Plan - Detailed Diagnosis and Plan (1) Renal calculus or stone Current Visit: Yes Status: Acute Base Code: N20.0 - CALCULUS OF KIDNEY Priority: Medium Comment: 09/18- will be seeing Dr. Benz for stenting tomorrow. Will be NPO after mindnight. Pain adequately controlled with morphine , and nausea with zofran. (2) DVT prophylaxis Current Visit: Yes Status: Acute Base Code: [id number] - Comment: 09/18- will encourage ambulation and PAS if cannot tolerate. (3) Full code status Current Visit: Yes Status: Acute Base Code: Z78.9 - OTHER SPECIFIED HEALTH STATUS
[2016-09-18] MEDS ORDERED: DIPHENHYDRAMINE HCL IV 50 MG/ML VIAL IVP PRN (17:44)
[2016-09-19] MEDS: MORPHINE SULFATE 5 MG/ML PFS IVP PRN ×4 (01:14→12:33)
[2016-09-19] MEDS: ONDANSETRON HCL IV 4 MG/2 ML VIAL IVP PRN ×2 (05:02→11:17)
[2016-09-19] MEDS: METOCLOPRAMIDE HCL 10 MG/2 ML VIAL IVP PRN (08:29)
[2016-09-19] MEDS: ACETAMINOPHEN 1,000 MG/100 ML BTL IV ONE ×2 (11:20→12:43)
--- NOTE | 2016-09-19 12:12 | Physician Progress Note ---
Subjective - Date Date of Physician Progress Note: 09/19/16 - Subjective Subjective Comment: sitting up in bed c/o low back pain 6/10 in severity +n/v afebrile. normal urination normal stool 09/18/16 NPO procedure w/ dr. flowers later today Objective - Vital Signs Vital Signs: Vital Signs - Last 24 Hrs Temp Pulse Resp BP Pulse Ox 09/19/16 08:42 64 12 09/19/16 08:00 98.5 F 71 16 112/60 98 09/19/16 04:00 98.0 F 64 12 104/48 97 09/19/16 00:06 98.1 F 53 L 12 99/61 99 09/18/16 21:00 98.0 F 64 12 108/59 98 09/18/16 16:26 98.1 F 67 14 100/69 98 - General General Appearance: Alert, Oriented x3, Cooperative, Mild distress Limitations: No limitations - Head Head exam: Atraumatic, Normocephalic, Normal inspection - Eye Eye exam: Normal appearance, PERRL - Neck Neck exam: Normal inspection, Full ROM. negative: Tenderness - Respiratory Respiratory exam: Normal lung sounds bilaterally. negative: Respiratory distress - Cardiovascular Cardiovascular Exam: Regular rate, Normal rhythm, Normal heart sounds - GI/Abdominal GI/Abdominal exam: Tenderness (There is RLQ tenderness.). negative: Soft, Guarding, Rebound - Extremities Extremities exam: Normal inspection, Full ROM, Normal capillary refill. negative: Tenderness - Back Back exam: Reports: CVA tenderness (R), Full ROM - Neurological Neurological exam: Alert. negative: Abnormal gait - Psychiatric Psychiatric exam: Anxious - Skin Skin exam: negative: Erythema, Rash Assessment and Plan - Assessment and Plan (1) Renal calculus or stone Current Visit: Yes Status: Acute Base Code: N20.0 - CALCULUS OF KIDNEY Priority: Medium Comment: 09/19- will be seeing Dr. Benz for stenting today. remain NPO after mindnight. Pain adequately controlled with morphine, and nausea with zofran. (2) DVT prophylaxis Current Visit: Yes Status: Acute Base Code: [id number] - Comment: 09/19- will encourage ambulation and PAS if cannot tolerate. (3) Full code status Current Visit: Yes Status: Acute Base Code: Z78.9 - OTHER SPECIFIED HEALTH STATUS Comment: 09/19/16: pt will remain full code Results - Labs Result Diagrams: 09/18/16 09:50 09/18/16 09:50 DVT/PE Assessment - Risk for VTE Risk for VTE: No Risk Level: Very Low Risk Assessment Date: 09/18/16 Risk Assessment Time: 17:42 VTE Orders Placed or Will Be Placed: No VTE Reason for No Prophylaxis: Not Indicated - Active Medicaitons Current Medications: Current Medications Diphenhydramine HCl (Benadryl Iv) 50 mg IVP Q2H PRN PRN Reason: ITCH/HIVES Last Admin: 09/18/16 17:49 Dose: 50 mg Hydromorphone HCl (Dilaudid) 1 mg IVP Q2H PRN PRN Reason: Analgesia Last Admin: 09/19/16 00:41 Dose: 1 mg Sodium Chloride () 1,000 mls @ 100 mls/hr IV .Q10H PRN PRN Reason: LARGE VOLUME IV Acetaminophen (Ofirmev) 1,000 mg in 100 mls @ 400 mls/hr IV PREOP ONE Stop: 09/19/16 13:14 Last Admin: 09/19/16 11:20 Dose: 400 mls/hr Cefazolin Sodium (Kefzol) 1 gm in 50 mls @ 100 mls/hr IVPB PREOP ONE Stop: 09/19/16 13:44 Metoclopramide HCl (Reglan) 10 mg IVP Q6H PRN PRN Reason: NAUSEA OR VOMITING Last Admin: 09/19/16 08:29 Dose: 10 mg Morphine Sulfate (Morphine Sulfate) 10 mg IVP Q2HR PRN PRN Reason: Pain - Severe (8-10) Stop: 09/25/16 12:02 Last Admin: 09/19/16 03:48 Dose: 10 mg Morphine Sulfate (Morphine Sulfate) 5 mg IVP Q2H PRN PRN Reason: Pain - General Stop: 09/25/16 12:54 Last Admin: 09/19/16 08:29 Dose: 5 mg Ondansetron HCl (Zofran) 4 mg IVP Q4H PRN PRN Reason: NAUSEA Last Admin: 09/19/16 11:17 Dose: 4 mg AMI Plan - Labs Result Diagrams: 09/18/16 09:50 09/18/16 09:50
[2016-09-19] MEDS ORDERED: CEFAZOLIN 1 Gram 1 GM/50 ML BAG IVPB ONE (13:15)
[2016-09-19] MEDS ORDERED: ACETAMINOPHEN/CODEINE TABLET PO PRN ×2 (21:46→21:48)
--- NOTE | 2016-09-20 06:50 | Discharge Summary ---
Providers Discharge Summary Date: 09/20/16 Date of admission: 09/18/16 10:59 Expected Date of Discharge: 09/20/16 Attending physician: SALINA HAWLEY Primary care physician: Arcelia Radford Physical Exam - Vital Signs Vital Signs: Vital Signs - Last 24 Hrs Temp Pulse Resp BP Pulse Ox 09/20/16 06:00 98.2 F 69 14 112/63 97 09/19/16 22:06 98.1 F 73 16 120/70 95 09/19/16 21:00 14 09/19/16 16:00 98.5 F 70 14 126/78 98 09/19/16 08:42 64 12 09/19/16 08:00 98.5 F 71 16 112/60 98 - General General Appearance: Alert, Oriented x3, Cooperative, No acute distress Limitations: No limitations - Head Head exam: Atraumatic, Normocephalic, Normal inspection - Eye Eye exam: Normal appearance, PERRL - Neck Neck exam: Normal inspection, Full ROM. negative: Tenderness - Respiratory Respiratory exam: Normal lung sounds bilaterally. negative: Respiratory distress - Cardiovascular Cardiovascular Exam: Regular rate, Normal rhythm, Normal heart sounds - GI/Abdominal GI/Abdominal exam: negative: Soft, Guarding, Rebound, Tenderness - Extremities Extremities exam: Normal inspection, Full ROM, Normal capillary refill. negative: Tenderness - Back Back exam: Reports: CVA tenderness (R), Full ROM - Neurological Neurological exam: Alert. negative: Abnormal gait - Psychiatric Psychiatric exam: Anxious - Skin Skin exam: negative: Erythema, Rash Hospitalization - Hospitalization Admission Diagnosis: 1. R Ureter Stone with Obstruction. - Problem List/Discharge Diagnosis (1) Renal calculus or stone Current Visit: Yes Status: Acute Base Code: N20.0 - CALCULUS OF KIDNEY Comment: 09/20/16- s/p stenting w/ Dr. Raymundo. Afebrile. no abd/back pain. normal /GI function. Zofran as needed for nausea. Tylenol 3 PO prn for pain. Follow up with me October 03 @ 10am. Return re any new or worsening symptoms (2) Full code status Current Visit: Yes Status: Acute Base Code: Z78.9 - OTHER SPECIFIED HEALTH STATUS Comment: 09/20/16: pt remained full code - Hospitalization Course Disposition: Home, Self-Care Hospital Course: 30 yo F presented to ER with right sided pain. The patient has a known R distal ureter stone and now is having increased pain. She was in the ER 2 hours ago prior to the current ER visit that lead to the admission, and also an ER visit a week prior to that for the same thing and was discharged due to the pain being controlled. Now the pain is worse again and very severe. She does have nausea but no vomiting. Denies any fevers or chills. Past Medical History: Kidney stone 3 years prior, smoker x 1ppd since age 19, PCP:[facility] Family Practice 09/19/16:patient continues to experience right flank pain. 10/14 in severity. IV pain medication q 2 hours relieving pain. Stenting with Dr. Horne later today. afebrile. +n/v. normal /GI function. 09/20/16: feeling much improved this morning. no n/v. took tylenol 3 for pain last night. no pain medication this morning. afebrile. normal urinary habits. no abd pain or back pain. Procedures: Imaging and X-Rays 09/19/16 15:00 FLUOROSCOPY CHARGE 1 HR [RAD] Routine Condition at Discharge: (2) Stable Discharge Medications - Discharge Medications Prescriptions: Ondansetron HCl [Zofran] 4 mg PO TID PRN #20 tablet PRN Reason: Nausea Home Medications: Ambulatory Orders Acetaminophen with Codeine [Tylenol with Codeine #3] 1 - 2 tab PO Q6H #20 tab [Last Taken Unknown] Tamsulosin HCl [Flomax] 0.4 mg PO DAILY 09/18/16 [Last Taken Unknown] Ondansetron HCl [Zofran] 4 mg PO TID PRN #20 tablet 09/20/16 [Last Taken Unknown ] Discharge Plan - Discharge Instructions Activity at Discharge: Increase Activity as Tolerated Instructions: Kidney Stones (DC), Ureteral Stent Placement (DC) Additional Instructions: 2 Activity: Increase Activity as Tolerated 2 Diet: advance as tolerated. 2 Consults: [] 2 Follow Up: [Follow up with Arcelia Radford PA-C October 03 at 10 am] 2 Dressing/Wound Care: (Type) (Change) 2 Additional: [ uppers edge burnisher zofran from pharmacy and take as needed for nausea. Tylenol 3 as needed for pain return sooner re any new or worsening symptoms.]
--- NOTE | 2016-09-20 13:10 | Operative Note ---
DATE OF SURGERY: 09/19/2016 PREOPERATIVE DIAGNOSIS: Right ureteral calculus with hydronephrosis. POSTOPERATIVE DIAGNOSIS: Right ureteral calculus with hydronephrosis. OPERATION: Cystoscopy, right retrograde pyelogram, insertion of right ureteral stent. Anesthesia: Sedation. Indication: A 30-year-old female seen about a week ago in the clinic at [place] with a small obstructing right ureteral calculus who elected to continue medical expulsive therapy. Her pain was minimal at that time. Unfortunately, she has been presenting to the [facility] Emergency Room repeatedly with complaints of pain now coming back and ultimately she has been admitted to the hospital for pain control and for surgical intervention today. I discussed with the patient and several family members present that we do not have a [facility]teroscope [facility] but I would be able to place a stent to relieve the obstruction and deal with the stone at a later date. In discussing this with them, the patient states that she had just passed a stone minutes before our interview today but she was still having severe pain. Therefore, we elected to continue the planned procedure to place a stent and provide relief from the obstruction. PROCEDURE: Preop informed consent was obtained. Antibiotics have been given. Sedation was administered. The patient brought to the operating room. Placed in dorsal lithotomy position with genitalia prepped and draped sterilely. Cystoscopy was performed. Urethra appears unremarkable. The bladder was surveyed. No bladder abnormality is seen; however, the right ureteral orifice appears quite edematous and enlarged and inflamed. The left orifice appears unremarkable. I did not see any stone in the bladder. Retrograde injection of contrast was performed into the right ureteral and mobile C-arm fluoroscopic images were obtained. Given the limitations for fine detail using this imaging modality, there was still significant right hydroureter and hydronephrosis visualized. I could not see a discrete filling defect in the distal ureter; however, there was significant narrowing right at the ureterovesical junction. My assumption at this point is that he had passed a stone but the stone had caused significant trauma to the distal ureter resulting in her persistent symptoms. I elected then to place a stent. A guidewire was advanced into the right collecting system and a 24 cm double J stent was advanced over the wire without difficulty, left in correct confirmed position both proximally and distally and there was rapid movement of urine through the distal coil of the stent into the bladder at the end of the procedure. At that point the scope was removed. The patient was awakened and transferred to recovery in stable condition. I did leave the strings attached to the distal coil of the stent, and this was secured to her lower abdomen with a Tegaderm dressing. PLAN: The patient can be discharged to home when she is stable, which could be as soon as today. I gave the patient and family very detailed instructions on having the patient remove the stents herself in 7 days. I fransisca a diagram and gave them very specific instructions. The stent should not be removed before 7 days' time to allow her ureter to heal. She can then follow up in the clinic as needed in the future assuming that she continues to progress as expected. Boy Hammond M.D. [facility]
== END 2016-09-20 10:00 | disposition home or self-care (01) ==
LOC: ER 09:32 → MEDSURG 10:59
PROVIDERS: ADMIT Family Medicine; ATTEND Family Medicine
DX: N13.2 Hydronephrosis with renal and ureteral calculous obstruction (principal); Z78.9 Other specified health status
CPT/HCPCS: 52332; 99284 ×2; 99285 ×2; 96376; 96374; 96375; 96361; 80048; 81001; 81025; 85027; 76000; 74176; 00910; G0378 ×3; J1885; J2405 ×2; J0690; J1170 ×2; J2270 ×2; 99217; 99219; 99225; J1200; J2765; J7030